=== PATIENT | male | born 1945 | race Caucasian/White ===

== ENCOUNTER → 2017-08-22 | Outpatient (REF) | LOC: ZLAB.WCH 15:52 | DX: Z01.89 Encounter for other specified special examinations (principal) | CPT/HCPCS: G0103 ==

== ENCOUNTER → 2017-11-14 | Outpatient (REF) ==
[2017-11-14 16:36] LABS: THYROID STIMULATING HORMONE 1.53 uIU/mL (0.465-4.680)
[2017-11-14 16:38] LABS: PSA-TOTAL 8.63 ng/mL (0-4)
== END ==
LOC: ZLAB.WCH 15:24
PROVIDERS: Family Medicine
DX: Z01.89 Encounter for other specified special examinations (principal)
CPT/HCPCS: G0103

== ENCOUNTER → 2018-02-20 | Outpatient (REF) | LOC: ZLAB.WCH 20:40 | DX: Z01.89 Encounter for other specified special examinations (principal) | CPT/HCPCS: G0103 ==